=== PATIENT | male | born 1985 | race African-American/Black ===

== ENCOUNTER 2016-09-22 09:44 | Emergency (ER) | payer SELFPAY ==
[~2016-09-22] VITALS: Ht 185.4 cm; Wt 90.7 kg
[2016-09-22 10:06] VITALS: BP 140/93
== END 2016-09-22 10:06 | disposition home or self-care (01) ==
LOC: ER 09:46
DX: G51.0 Bell's palsy (principal)
CPT/HCPCS: 99283; A4606; Z7610